=== PATIENT | male | born 1990 | race Hispanic/Latino ===

== ENCOUNTER 2023-03-22 18:26 | Inpatient (IN) | payer BC, SELFPAY ==
[2023-03-22 19:27] LABS: #Basophils 0.1 10x3/uL (0.0-0.2); #Eosinphils 0.1 10x3/uL (0.0-0.5); #Monocytes 0.7 10x3/uL (0.0-1.1); #Neutrophils 6.5 10x3/uL (1.5-8.4); %Basophils 0.5 % (0.0-2.0); %Eosinophils 0.8 % (0.0-6.0); %Lymphocytes 25.3 % (18.0-47.0); %Monocytes 6.7 % (0.0-10.0); %Neutrophils 66.3 % (40.0-75.0); Hematocrit 46.2 % (38.8-50.0); Hemoglobin 15.6 g/dL (13.5-17.5); Mean Corpuscular HGB CONC 33.8 g/dL (32.0-36.0); Mean Corpuscular Hemoglobin 26.5 pg (27.0-33.0); Mean Corpuscular Volume 78.4 fl (81.2-95.1); Mean Platelet Volume 11.1 fl (7.4-10.4); Platelet Count 367 10x3/uL (150-450); RBC Distribution Width 13.4 % (11.5-14.5); Red Blood Cell (RBC) Count 5.89 10x6/uL (4.32-5.72); White Blood Cell (WBC) Count 9.9 10x3/uL (3.5-10.5)
[2023-03-22 19:36] LABS: ALT (SGPT) 71 U/L (8-55); AST (SGOT) 29 U/L (5-34); Albumin 4.4 g/dL (3.5-5.0); Alkaline Phosphatase 104 U/L (40-110); Anion Gap 20 mmol/L (10-20); BUN (Urea Nitrogen) 9 mg/dL (8.9-20.6); Bilirubin, Total 0.5 mg/dL (0.2-1.2); Calc. Creatinine Clearance 0 mL/min (70-130); Calcium 9.5 mg/dL (7.8-10.44); Chloride 107 mmol/L (98-107); Estimated GFR 79; Globulin 4.1 g/dL (2.4-3.5); Glucose 342 mg/dL (70-105); Potassium 3.6 mmol/L (3.5-5.1); Protein, Total 8.5 g/dL (6.0-8.3); Sodium 132 mmol/L (136-145)
[2023-03-22 19:41] LABS: Carbon Dioxide 9 mmol/L (22-29)
[2023-03-22 20:04] LABS: Actual Bicarbonate (HCO3v) 8.5 mEq/L (22-28); Analyzer IN Cardio CS ER; Base Excess -17.9 mEq/L (-2 - +2); Calcium, Ionized (venous) 1.33 mmol/L (1.16-1.32); Chloride (VBG) 107 mmol/L (98-106); Hematocrit-VBG 48 % (42.0-52.0); Hemoglobin (Hb) 16.2 g/dL (13.2-17.3); Potassium (VBG) 3.59 mmol/L (3.70-5.30); Puncture Site Other Site; RapidComm Collect By LAB; Sodium 138 mmol/L (133-146); pH (venous) 7.177 (7.32-7.43)
[2023-03-22 20:06] LABS: Magnesium 1.9 mg/dL (1.6-2.6)
[2023-03-22] MEDS ORDERED: INSULIN REGULAR IN 0.9 % NACL 100 UNITS in Premix 1 BAG IVPB SCH (20:30)
[2023-03-22] MEDS ORDERED: INSULIN REGULAR IN 0.9 % NACL 100 UNITS/100 ML BAG ONE (20:46)
[2023-03-22] MEDS ORDERED: Insulin Regular 300 UNITS/3 ML VIAL ONE (20:46)
[2023-03-22 21:12] LABS: Bilirubin Neg (Negative); Blood, Urine 25 (Negative); Clarity Clear (Clear); Glucose, Urine (Dipstick) >=1000 mg/dL (Negative); Ketone, Urine 150 mg/dL (Negative); Leukocyte Negative (Negative); Nitrite Negative (Negative); Protein, Urine (Dipstick) 30 mg/dl (Neg-Trace); Specific Gravity, Urine 1.025 (1.005-1.030); Urobilinogen Normal mg/dL (Less than 2)
[2023-03-22 21:22] LABS: CAUTI Indications for Culture Alt mental st,lethar; RBC/HPF 0-3 HPF (0-3); Squamous Epithelial 0-3 HPF (0-3); WBC/HPF 0-3 HPF (0-3)
[2023-03-22 21:23] LABS: Bacteria/HPF Rare-Few HPF (None Seen); Urine Culture Reflex No No
[2023-03-22] MEDS ORDERED: Dextrose 5 %-0.45 % NaCl 1,000 ML IV PRN (21:25)
[2023-03-22] MEDS ORDERED: Dextrose 50% Abboject 50 ML SYRINGE SLOW IVP PRN (21:25)
[2023-03-22] MEDS ORDERED: Acetaminophen 325 MG TAB PO PRN (21:25)
[2023-03-22] MEDS ORDERED: Sodium Chloride 0.9% 1,000 ML IV PRN ×4 (21:25)
[2023-03-22] MEDS ORDERED: Ondansetron PF 4 MG/2 ML Vial IVP PRN (21:25)
[2023-03-22] MEDS ORDERED: Ondansetron ODT 4 MG TAB PO PRN (21:25)
[2023-03-22] MEDS ORDERED: NS 0.9% w/ 20 MEQ KCL 1,000 ML IV PRN ×2 (21:25)
[2023-03-22] MEDS ORDERED: Electrolyte Replacement Protocol 1 EACH IVPB ONE (21:25)
[2023-03-22] MEDS ORDERED: Losartan 25 MG TAB PO SCH (21:45)
[2023-03-22 22:04] VITALS: BMI 40.8
[2023-03-22 22:33] LABS: BUN (Urea Nitrogen) 8 mg/dL (8.9-20.6); Calc. Creatinine Clearance 156 mL/min (70-130); Calcium 9.1 mg/dL (7.8-10.44); Chloride 112 mmol/L (98-107); Estimated GFR 86; Glucose 233 mg/dL (70-105); Magnesium 1.8 mg/dL (1.6-2.6); Potassium 3.3 mmol/L (3.5-5.1); Sodium 136 mmol/L (136-145)
[2023-03-22 22:35] LABS: Phosphorus 1.6 mg/dL (2.3-4.7)
[2023-03-22 22:40] LABS: Carbon Dioxide Less than 8 mmol/L (22-29)
[2023-03-22] MEDS ORDERED: Electrolyte Replacement Protocol IVPB SCH (23:15)
[2023-03-22] MEDS ORDERED: Magnesium 2 GM/50 ML(in water) 2 GM in Premix 1 BAG IVPB SCH (23:15)
[2023-03-22] MEDS ORDERED: Potassium Chloride 20 MEQ TAB PO SCH (23:15)
[2023-03-22] MEDS: PHOS-NAK 1 PKT PACK PO SCH (23:22)
[2023-03-23 02:42] LABS: Anion Gap 16 mmol/L (10-20); BUN (Urea Nitrogen) 7 mg/dL (8.9-20.6); Calc. Creatinine Clearance 202 mL/min (70-130); Calcium 8.2 mg/dL (7.8-10.44); Chloride 114 mmol/L (98-107); Estimated GFR 115; Glucose 159 mg/dL (70-105); Potassium 3.1 mmol/L (3.5-5.1); Sodium 135 mmol/L (136-145)
[2023-03-23 02:54] LABS: Carbon Dioxide 8 mmol/L (22-29)
[2023-03-23] MEDS ORDERED: Potassium Chloride 20 MEQ TAB PO SCH ×3 (03:00→22:15)
[2023-03-23] MEDS: PHOS-NAK 1 PKT PACK PO SCH ×3 (03:26→21:49)
[2023-03-23] MEDS: D5 1/2 NS w/20 mEq KCL 1,000 ML IV PRN ×5 (03:30→21:49)
[2023-03-23 05:06] LABS: Anion Gap 16 mmol/L (10-20); BUN (Urea Nitrogen) 6 mg/dL (8.9-20.6); Calc. Creatinine Clearance 204 mL/min (70-130); Calcium 8.2 mg/dL (7.8-10.44); Chloride 111 mmol/L (98-107); Estimated GFR 115; Glucose 231 mg/dL (70-105); Potassium 3.6 mmol/L (3.5-5.1); Sodium 132 mmol/L (136-145)
[2023-03-23 05:22] LABS: Carbon Dioxide 9 mmol/L (22-29)
[2023-03-23 07:33] LABS: Anion Gap 13 mmol/L (10-20); BUN (Urea Nitrogen) 5 mg/dL (8.9-20.6); Calc. Creatinine Clearance 198 mL/min (70-130); Calcium 8.3 mg/dL (7.8-10.44); Carbon Dioxide 11 mmol/L (22-29); Chloride 111 mmol/L (98-107); Estimated GFR 114; Glucose 220 mg/dL (70-105); Potassium 3.4 mmol/L (3.5-5.1); Sodium 132 mmol/L (136-145)
[2023-03-23] MEDS: Enoxaparin 40 MG (0.4 mL) SYRINGE SC SCH (08:30)
[2023-03-23] MEDS: Losartan 50 MG TAB PO SCH (08:30)
[2023-03-23] MEDS ORDERED: FLU VACC QS2023-24(6MOS UP)/PF 60 MCG/0.5 ML SYRINGE IM ONE (09:00)
[2023-03-23] MEDS ORDERED: Polyethylene Glycol 3350 17 GM Packet PO SCH (10:00)
[2023-03-23] MEDS: INSULIN REGULAR IN 0.9 % NACL 100 UNITS in Premix 1 BAG IVPB SCH ×2 (10:27→21:48)
[2023-03-23 14:32] LABS: Magnesium 1.6 mg/dL (1.6-2.6); Phosphorus 1.2 mg/dL (2.3-4.7); Potassium 3.3 mmol/L (3.5-5.1)
[2023-03-23 16:31] VITALS: TEMP 98.5
[2023-03-23] MEDS ORDERED: Magnesium 2 GM/50 ML(in water) 2 GM in Premix 1 BAG IVPB SCH (17:00)
[2023-03-23 21:27] LABS: Anion Gap 11 mmol/L (10-20); BUN (Urea Nitrogen) 5 mg/dL (8.9-20.6); Calc. Creatinine Clearance 240 mL/min (70-130); Calcium 8.6 mg/dL (7.8-10.44); Carbon Dioxide 15 mmol/L (22-29); Chloride 109 mmol/L (98-107); Estimated GFR 121; Glucose 160 mg/dL (70-105); Potassium 3.3 mmol/L (3.5-5.1); Sodium 132 mmol/L (136-145)
[2023-03-24] MEDS: D5 1/2 NS w/20 mEq KCL 1,000 ML IV PRN (00:10)
[2023-03-24] MEDS: PHOS-NAK 1 PKT PACK PO SCH ×2 (00:10→20:33)
[2023-03-24 03:20] LABS: Anion Gap 12 mmol/L (10-20); BUN (Urea Nitrogen) 4 mg/dL (8.9-20.6); Calc. Creatinine Clearance 237 mL/min (70-130); Calcium 8.6 mg/dL (7.8-10.44); Carbon Dioxide 16 mmol/L (22-29); Chloride 109 mmol/L (98-107); Estimated GFR 121; Glucose 219 mg/dL (70-105); Magnesium 1.9 mg/dL (1.6-2.6); Potassium 3.4 mmol/L (3.5-5.1); Sodium 134 mmol/L (136-145)
[2023-03-24] MEDS ORDERED: Magnesium 2 GM/50 ML(in water) 2 GM in Premix 1 BAG IVPB SCH (03:30)
[2023-03-24] MEDS ORDERED: Potassium Chloride 20 MEQ TAB PO SCH (03:30)
[2023-03-24] MEDS ORDERED: Glucagon 1 MG/ML KIT IM PRN (08:37)
[2023-03-24] MEDS ORDERED: Dextrose 5% in Water 1,000 ML IV PRN (08:37)
[2023-03-24] MEDS ORDERED: Dextrose 50% Abboject 50 ML SYRINGE SLOW IVP PRN (08:37)
[2023-03-24] MEDS: Enoxaparin 40 MG (0.4 mL) SYRINGE SC SCH (09:16)
[2023-03-24] MEDS: Polyethylene Glycol 3350 17 GM Packet PO SCH (09:16)
[2023-03-24] MEDS: Losartan 50 MG TAB PO SCH (09:16)
[2023-03-24] MEDS: Lantus 1000 UNITS/10 ML VIAL SC SCH (09:16)
[2023-03-24 09:46] LABS: Phosphorus 2.3 mg/dL (2.3-4.7)
[2023-03-24] MEDS: HumaLOG 300 UNITS/3 ML VIAL SC PRN ×3 (11:31→21:01)
[2023-03-24] MEDS: metFORMIN 500 MG TAB PO SCH (16:52)
[2023-03-24 22:22] VITALS: BP 123/69
[2023-03-25 04:13] LABS: Anion Gap 14 mmol/L (10-20); BUN (Urea Nitrogen) 6 mg/dL (8.9-20.6); Calc. Creatinine Clearance 244 mL/min (70-130); Calcium 8.8 mg/dL (7.8-10.44); Carbon Dioxide 20 mmol/L (22-29); Chloride 104 mmol/L (98-107); Estimated GFR 122; Glucose 240 mg/dL (70-105); Magnesium 1.8 mg/dL (1.6-2.6); Potassium 3.3 mmol/L (3.5-5.1); Sodium 135 mmol/L (136-145)
[2023-03-25] MEDS ORDERED: Potassium Chloride 20 MEQ TAB PO SCH (05:00)
[2023-03-25] MEDS ORDERED: Magnesium 2 GM/50 ML(in water) 2 GM in Premix 1 BAG IVPB SCH (05:00)
[2023-03-25] MEDS: HumaLOG 300 UNITS/3 ML VIAL SC PRN (06:41)
[2023-03-25] MEDS: metFORMIN 500 MG TAB PO SCH (07:31)
[2023-03-25] MEDS: Losartan 50 MG TAB PO SCH (07:32)
[2023-03-25] MEDS: Lantus 1000 UNITS/10 ML VIAL SC SCH (07:32)
[2023-03-25] MEDS: Enoxaparin 40 MG (0.4 mL) SYRINGE SC SCH ×2 (07:32→07:38)
[2023-03-25] MEDS: Polyethylene Glycol 3350 17 GM Packet PO SCH (07:33)
== END 2023-03-25 09:47 | disposition home or self-care (01) | DRG 639 ==
LOC: CSHERS 18:26 → SUATTDRO 18:26 → CSHICU 20:46
PROVIDERS: ADMIT Family Medicine; ATTEND Internal Medicine
PROC: 4A043R1 Measurement of Venous Saturation, Peripheral, Percutaneous Approach (ICD-10-PCS; principal; 2023-03-22)
DX: E11.10 Type 2 diabetes mellitus with ketoacidosis without coma (principal); F90.9 Attention-deficit hyperactivity disorder, unspecified type; I10 Essential (primary) hypertension; Z79.899 Other long term (current) drug therapy; E87.6 Hypokalemia; E83.42 Hypomagnesemia; K58.1 Irritable bowel syndrome with constipation; Z79.4 Long term (current) use of insulin; E86.0 Dehydration; E86.1 Hypovolemia
CPT/HCPCS: 36415; 36416; 71045; 80048; 80053; 81001; 82010; 82805; 83036; 83735; 84100; 85025; 90471; 90686; 93005; 96361; 96374; G0008; J1650; J1815; J3475; J3480; J7030; J7042; J7050; J7999